=== PATIENT | male | born 1940 | race Caucasian/White ===

== ENCOUNTER → 2018-01-16 | Outpatient (CLI) | payer MEDICARE ==
[2018-01-16 13:28] LABS: T4 (THYROXINE) 11.7 mcg/dL (4.5-12.1); THYROID STIMULATING HORMONE 1.62 mIU/L (0.358-3.740)
== END | disposition home or self-care (01) ==
LOC: CFH 09:05
PROVIDERS: ATTEND Internal Medicine Cardiovascular Disease
DX: I10 Essential (primary) hypertension (principal)
CPT/HCPCS: 36415; 84436; 84443; 84481